=== PATIENT | female | born 1975 | race Caucasian/White ===

== ENCOUNTER 2020-07-13 09:15 | Outpatient (CLI) | payer OTHER | END 2020-07-13 23:59 | disposition home or self-care (01) | LOC: ROC 09:15 | PROVIDERS: ATTEND Radiology Radiation Oncology | DX: Z02.9 Encounter for administrative examinations, unspecified (principal) ==

== ENCOUNTER 2020-11-01 08:42 | Outpatient (CLI) | payer OTHER | END 2020-11-01 23:59 | disposition home or self-care (01) | LOC: ROC 08:42 | PROVIDERS: ATTEND Radiology Radiation Oncology | DX: G50.0 Trigeminal neuralgia (principal) | CPT/HCPCS: 99214; G0463 ==